=== PATIENT | male | born 1975 | race African-American/Black ===

== ENCOUNTER 2016-11-07 10:37 | Emergency (ER) | payer MEDICAID ==
[~2016-11-07] VITALS: Ht 180.3 cm; Wt 90.7 kg
[2016-11-07 10:46] VITALS: BP 112/77
== END 2016-11-07 12:36 | disposition home or self-care (01) ==
LOC: ER 10:37
DX: N45.1 Epididymitis (principal); N43.3 Hydrocele, unspecified; I86.1 Scrotal varices
CPT/HCPCS: 76870